=== PATIENT | male | born 1945 | race Caucasian/White ===

== ENCOUNTER → 2016-11-15 | Outpatient (CLI) | payer OTHER ==
[~2016-11-15] MED LIST: ALBUAER2 INH; AMLO-110 PO; ASPEC81 PO; CLC100 PO; CLOP1TAB15 PO; ISOS60TA25 PO; LISI-729 PO; METO-551 PO; METO25TA56 PO; NTRGSL/4 UT; PRAV40TA PO; ZNTT/150 PO
--- NOTE | 2016-11-15 08:34 | DIAGNOSTIC IMAGING REPORT ---
NECK ANGIO WITH CONTRAST CLINICAL HISTORY: 71 years-old Male presenting with lesion in the proximal mid left ICA. TECHNIQUE: Multidetector CT angiography of the neck was performed after the administration of intravenous contrast. 3-D volumetric and/or maximum intensity projection (MIP) images were subsequently reconstructed for review. IV contrast: 117 mL of Optiray 320. A dose lowering technique was used consistent with the principles of ALARA (as low as reasonably achievable). COMPARISON: None. CT DOSE (mGy.cm): The estimated cumulative dose is 572.22 mGy.cm. FINDINGS: Drafter Assistant topogram: Right craniotomy defect, median sternotomy wires, mediastinal surgical clips noted. Atherosclerosis of the aortic arch. Common origin of the innominate and left common carotid arteries. Mild atherosclerosis of the common carotid arteries, greater on the left. Atherosclerosis of the carotid bulbs is also greater on the left with calcified and noncalcified atherosclerotic plaque. Severe stenosis of the proximal left internal carotid artery results from noncalcified atherosclerotic plaque with a minimal diameter of 1 mm in comparison to a normal distal diameter of 5 mm (at least 80% stenosis). Distal to this the left internal carotid artery is widely patent without significant plaque burden. Mild calcified atherosclerotic plaque noted in the petrous left ICA. The right internal carotid artery is also narrowed in the proximal segment to a lesser degree with a minimal diameter of 2-2.5 mm in comparison to a normal distal diameter of 4 mm (approximately 50% stenosis). Codominant vertebral arteries. Atherosclerotic plaque results in less than 50% narrowing of the origin of the right vertebral artery through the left vertebral artery origin is widely patent. Remainder of the courses of the bilateral vertebral arteries are also widely patent. Visualized soft tissues of the neck within normal limits. Mild multilevel degenerative changes of the cervical spine. Mild emphysematous changes noted at the apices. The previously noted focal groundglass opacity at the left apex is not included within the [id number]. IMPRESSION: 1. At least 80% stenosis focally in the proximal left internal carotid artery secondary to noncalcified atherosclerotic plaque. 2. Approximately 50% stenosis in the proximal right internal carotid artery. 3. Less than 50% stenosis of the origin of the right vertebral artery. Electronically signed by: Esa Jain M.D. 11/15/2016 8:33 AM Dictated Date/Time: 11/15/2016 8:21 AM
== END ==
LOC: C.CTS 07:44
PROVIDERS: ATTEND Family Medicine
DX: R93.0 Abnormal findings on diagnostic imaging of skull and head, not elsewhere classified (principal); I25.10 Atherosclerotic heart disease of native coronary artery without angina pectoris; I10 Essential (primary) hypertension; K21.9 Gastro-esophageal reflux disease without esophagitis; I65.23 Occlusion and stenosis of bilateral carotid arteries; I74.8 Embolism and thrombosis of other arteries

== ENCOUNTER → 2017-04-21 | Outpatient (CLI) | payer OTHER ==
[~2017-04-21] MED LIST changes: +REGADENOSON 0.4 MG/5 ML SYR ONE
--- NOTE | 2017-04-24 12:50 | MYOCARDIAL PERFUSION SCAN ---
ORDERING PHYSICIAN: Tremaine Diaz MD PRIMARY CARE DOCTOR: Dr. Kendell Wilkerson INDICATION: Preoperative evaluation. DESCRIPTION OF PROCEDURE: The patient underwent standard Lexiscan stress ECG with results under a separate cover. There were no diagnostic ST changes with Lexiscan infusion. TECHNIQUE: For the stress portion of the study 10.8 mCi of technetium-99m Cardiolite IV was injected at 9:30 a.m. on 04/21/2017. Thirty minutes following the injection, imaging of the heart was performed in multiple projections. For the rest portion of the study, 32.9 mCi of technetium-99m Cardiolite was injected IV at 11:20 a.m. One hour following the injection, imaging of the heart was performed in the same projections. RAW DATA: There is mild motion artifact on the rest and stress images. There is a moderate in size, [id number] intensity distal anterior and apical defect, which is predominantly fixed consistent with prior myocardial infarction and scar. There is a moderate in size, moderate intensity septal and anterior septal defect, which is predominantly fixed, consistent with prior myocardial infarction and scar. There is minimal rossana-infarct ischemia. Quantitative analysis was performed and confirms these findings with a sum stress score of 10 and a sum difference score of 2, suggesting minimal rossana-infarct ischemia. Gated SPECT was performed. The left ventricle was mildly dilated with an end-diastolic volume of 141 mL. Calculated ejection fraction is mildly reduced with an EF in the range of 51%. There is septal fixation. The anterior septum, septum, distal anterior wall and apex are severely hypokinetic to akinetic. There is no obvious transient ischemic dilatation. IMPRESSION: 1. Prior myocardial infarction involving the septum, anterior septum, distal anterior wall and apex. 2. Minimal rossana-infarct ischemia. 3. Mildly dilated left ventricle with a calculated ejection fraction of 51% and wall motion abnormalities involving the septum, anterior septum, distal anterior wall and apex.
== END | disposition home or self-care (01) ==
LOC: C.NUCL 09:08
PROVIDERS: ATTEND Internal Medicine
DX: I25.10 Atherosclerotic heart disease of native coronary artery without angina pectoris (principal); I10 Essential (primary) hypertension; E78.5 Hyperlipidemia, unspecified; R93.0 Abnormal findings on diagnostic imaging of skull and head, not elsewhere classified; I73.9 Peripheral vascular disease, unspecified

== ENCOUNTER 2017-06-20 08:44 | Inpatient (IN) | payer OTHER ==
[2017-06-02 08:29] VITALS: BMI 26.0
--- NOTE | 2017-06-19 15:48 | History and Physical ---
History & Physical Date of Service Jun 19, 2017. History & Physical CC: Left internal carotid artery stenosis HPI: Mr. Walter was undergoing a routine physical exam and a left carotid bruit was noted last fall. Ultrasound was performed which demonstrated elevated velocities in his left internal carotid artery with a peak systolic velocity measuring over 300 and a diastolic velocity of 90. This indicates 90% stenosis of the left internal carotid artery and approximately 60% stenosis of his right internal carotid artery. The patient denies any complaints at this time aside from some occasional headaches. He denies any vision changes, difficulty speaking or swallowing; difficulty moving his arms or legs; weakness, numbness, or tingling of any extremities; facial droop, fevers, chills, nausea, vomiting, chest pain, shortness of breath, abdominal pain, claudication, rest pain, nonhealing wounds or ulcers or other complaints. He was somewhat hesitant to undergo the procedure due to the risks involved. However, he is now willing to have the procedure performed, as he also does not wish to have a stroke. He did undergo an ultrasound evaluation in our office today to verify patency of his left carotid, which once again demonstrates the 80-99% stenosis with a peak systolic velocity of 491 and a diastolic velocity of 181 and an ICA/CCA ratio of 6. ALLERGIES: INCLUDE IODINE TO WHICH HE FORMS BLISTERS AND RASH. LATEX, OCEAN KIDS NASAL SPRAY, PENICILLIN TO WHICH HE FORMS A RASH WELL AND SHELLFISH TO WHICH HE FORMS A RASH. MEDICATIONS: His home medications are reconciled in the chart and include the following; amlodipine, aspirin, clopidogrel, Colace, isosorbide mononitrate, lisinopril, loratadine, magnesium oxide, metoprolol tartrate, pravastatin, ranitidine, and Ventolin inhaler. PAST MEDICAL HISTORY: Positive for coronary artery disease, hyperlipidemia, hypertension, gastroesophageal reflux disease, chronic obstructive pulmonary disease, constipation. PAST SURGICAL HISTORY: Positive for multiple cardiac catheterizations with a total of 10 coronary stents placed over the years, most recent catheterization was in 2013. Coronary artery bypass graft x4 in 1995, arthroscopic knee procedure and a surgical procedure on a skull fracture. He also had a tonsillectomy. FAMILY HISTORY: Positive for heart disease, carotid disease, and circulation problems. SOCIAL HISTORY: Positive for tobacco use. The patient smokes half a pack of cigarettes daily. He denies any alcohol or drug use. REVIEW OF SYSTEMS: Negative for fatigue, fevers, sweats, weight loss, exercise intolerance, abnormal moles or rashes, vision changes or photophobia, ear pain, sinus problems, or sore throat. No cough, shortness of breath, hemoptysis, wheezing, chest pain, palpitations, edema, syncope, abdominal pain, nausea, vomiting, diarrhea, constipation, dysuria, hematuria, muscle weakness, headaches , dizziness, numbness, or seizures. PHYSICAL EXAMINATION: His vital signs today were as follows; blood pressure 126 /74 in the right arm, 124/72 in the left, heart rate of 55, oxygen 96% on room air. The patient is 182.88 cm tall and weighs 91.2 kg. Constitutional, in general the patient is a mildly chronically ill-appearing elderly male in no acute distress. He ambulates without assistance and is active, alert, and oriented x4 with normal recent and remote memory. Head is normocephalic and atraumatic. Eyes are EOMI. ENMT exam does demonstrate some light hearing loss , particularly of his left ear. He hears better if you speak to his right ear. His neck is supple and nontender with a midline trachea without masses or crepitus. Lungs demonstrate no dyspnea. They are decreased throughout with a faint expiratory wheeze. Cardiovascular exam demonstrates a regular rate and rhythm with a faint 2/6 systolic ejection murmur. His peripheral pulses are full and equal in all extremities. No cellulitis noted specifically. There are normal in his carotid, brachial, radial and femoral pulses. Lower extremity DP pulses are +1. PTs are nonpalpable. He does have brisk capillary refill. No sign of distal ischemia. Hair growth remains present on his feet and toes. The patient does demonstrate a left carotid bruit. No abdominal femoral bruits are noted. Abdomen is soft and nontender with normoactive bowel sounds in all 4 quadrants. No guarding or rebound. There is no pulsatile mass appreciable. Musculoskeletal exam demonstrates normal tone and strength for age. Bilateral upper extremities demonstrate no cyanosis, edema, clubbing, varicosities, or ulcers. Bilateral lower extremities demonstrate no cyanosis, edema, clubbing, varicosities, or ulcers. Neurologically, the patient has grossly intact cranial nerves and grossly intact sensation without any focal deficits. ASSESSMENT AND PLAN Left internal carotid artery stenosis Plan: Patient is admitted for a left carotid endarterectomy. I have discussed the risks options and benefits of the procedure with the patient. The patient understands the risks options and benefits and agrees to the procedure.
[~2017-06-20] VITALS: Ht 182.9 cm; Wt 86.5 kg
[2017-06-20] VITALS (18 sets, daily range): BP systolic 114–162; BP diastolic 46–73; PULSE 49–64; TEMP 36.5–36.7; O2SAT 92–99; Ht 182.9 cm; Wt 86.5 kg
[~2017-06-20 08:44] MED LIST changes: -ALBUAER2 INH; -ASPEC81 PO; +ASPI81TA28 PO; +ATOR-24 PO; -CLC100 PO; +CLINDAMYCIN 600 MG/54 ML D5W 50 ML IV SCH; -CLOP1TAB15 PO; +DOCU100C31 PO; +LACTATED RINGER'S 1000ML 1,000 ML IV SCH; +LEVA45AE INH; +LISI-461 PO; -LISI-729 PO; +MAGN400T6 PO; +PLV75 PO; -PRAV40TA PO; +RANI150T85 PO; -REGADENOSON 0.4 MG/5 ML SYR ONE; -ZNTT/150 PO
--- NOTE | 2017-06-20 09:27 | History & Physical Bridge Note ---
H&P Re-Evaluation Bridge Note: I have examined the patient, reviewed the History & Physical and in the interval since the performance of the History & Physical I have noted the following changes of clinical significance: No changes noted
[2017-06-20 09:54] LABS: CALCIUM 8.8 mg/dl (8.5-10.1); CREATININE 1.18 mg/dl (0.60-1.40); POTASSIUM 4.2 mmol/L (3.5-5.1)
[2017-06-20] MEDS ORDERED: GELATIN SPONGE SZ 100 ONE (10:05)
[2017-06-20] MEDS ORDERED: HEPARIN SOD (PORCINE) 1000 UNIT/ML 10 ML VIAL ONE ×2 (10:05→12:59)
[2017-06-20] MEDS ORDERED: LIDOCAINE HCL 1% 20 ML VIAL ONE (10:05)
[2017-06-20] MEDS ORDERED: BUPIVACAINE/EPINEPHRINE 0.5% MPF 1:200,000 30 ML VIAL ONE (10:05)
[2017-06-20] MEDS ORDERED: THROMBIN FOR SOLN 20000 UNIT KIT ONE (10:05)
[2017-06-20] MEDS ORDERED: FENTANYL CITRATE INJ 50 MCG/1 ML 2 ML VIAL ONE ×2 (10:31→14:44)
[2017-06-20] MEDS ORDERED: LIDOCAINE HCL 2% JELLY 30 ML TUBE EXT ONE (10:34)
[2017-06-20] MEDS ORDERED: BACITRACIN 50000 UNIT VIAL ONE (11:22)
[2017-06-20] MEDS ORDERED: HYDROmorphone INJ 2 MG/ML SYR/VIAL ONE (12:07)
[2017-06-20] MEDS ORDERED: PHENYLEPHRINE HCL INJ 10 MG/ML VIAL ONE (12:15)
[2017-06-20] MEDS ORDERED: LIDOCAINE HCL 2% 2 ML VIAL (20MG/ML) ONE (12:15)
[2017-06-20] MEDS ORDERED: PROPOFOL IV EMULSION 10 MG/ML 20 ML VIAL IV ONE (12:15)
[2017-06-20] MEDS ORDERED: ROCURONIUM BROMIDE 10 MG/ML 5 ML VIAL IV ONE ×2 (12:15→13:00)
[2017-06-20] MEDS ORDERED: DEXAMETHASONE SOD INJ 4 MG/ML VIAL ONE (12:15)
[2017-06-20] MEDS ORDERED: EpHEDrine SULFATE 50MG/5ML SYR ONE (12:15)
[2017-06-20] MEDS ORDERED: ONDANSETRON INJ 2 MG/ML 2 ML VIAL ONE (12:15)
--- NOTE | 2017-06-20 13:57 | [facility] Post Operative Brief Note ---
Immediate Operative Summary Operative Date Jun 20, 2017. Pre-Operative Diagnosis Left Internal Carotid Artery Stenosis Post-Operative Diagnosis Left internal carotid artery stenosis Procedure(s) Performed Left carotid endarterectomy with patch Surgeon Dr. Tremaine Diaz Pilot Boat Deckhand Surgeon(s) Sindi Lagos, Fellow; Ana Shell PA-C Estimated Blood Loss 150cc Findings Consistent with Post-Op Diagnosis Specimens plaque and lymph node Drains None Anesthesia Type General Complication(s) none Disposition Accompanied Pt To Recover: no Disposition: Recovery Room / PACU
[2017-06-20] MEDS ORDERED: NEOSTIGMINE METHYLSULFATE 5 MG/5 ML SYR ONE (14:05)
[2017-06-20] MEDS ORDERED: GLYCOPYRROLATE INJ 0.2 MG/ML VIAL ONE (14:05)
[2017-06-20] MEDS ORDERED: PHENYLEPHRINE HCL INJ 20 MG in DEXTROSE 5% 500ML 500 ML IV PRN (14:12)
[2017-06-20] MEDS ORDERED: NITROGLYCERIN/D5W 100 MCG/ML 250 ML IV PRN (14:12)
[2017-06-20] MEDS ORDERED: NITROGLYCERIN 0.4 MG SL PER TAB CHARGE UT PRN (14:15)
[2017-06-20] MEDS ORDERED: ACETAMINOPHEN 325 MG TAB PO PRN (14:15)
[2017-06-20] MEDS ORDERED: METOPROLOL TARTRATE 1 MG/ML VIAL IV PRN (14:15)
[2017-06-20] MEDS ORDERED: LEValbuterol HFA 15GM INHALER INH PRN (14:15)
--- NOTE | 2017-06-20 14:39 | OPERATIVE REPORT ---
DATE OF OPERATION: 06/20/2017 PREOPERATIVE DIAGNOSIS: Asymptomatic left carotid artery stenosis. POSTOPERATIVE DIAGNOSIS: Same. PROCEDURE: Left carotid endarterectomy. SURGEON: Dr. Tremaine Diaz. FOLDER AND NOTCHER: Cherri Lagos and Ana Sommers PA-C. ANESTHESIA: General anesthesia. ESTIMATED BLOOD LOSS: 150. FLUIDS: 1600 crystalloid. COMPLICATIONS: None apparent. INDICATIONS: The patient is a 71-year-old male with asymptomatic high grade left carotid stenosis. He was recommended carotid endarterectomy for stroke prevention. He was advised the risks and benefits of undergoing the procedure and agreed to undergo the procedure. DESCRIPTION OF PROCEDURE: The patient was brought into the operative suite. He was prepped and draped in usual fashion. Timeout occurred. An incision was made anterior to the sternocleidomastoid muscle. The platysma was dissected. The sternocleidomastoid was moved laterally. The internal jugular was identified. A large branch was thought to be the facial vein was identified and ligated. Prior to ligation, it was palpated to make sure there is no low lying hypoglossal. The internal jugular was then moved laterally with the sternocleidomastoid. The common carotid artery was identified and dissected out. During the dissection of the internal carotid, the hypoglossal was identified and avoided. The dissection was then locked distally. Our attention was turned distally. The external and internal carotid were identified and dissected out. In order to dissect out the internal carotid, there was a large local lymph node that was resected and sent for pathology. Once it appeared we had enough link for an endarterectomy and clamping, the patient was instilled with 7000 units of heparin. Once enough length was obtained, the patient was heparinized with 7000 units of heparin. Clamps were applied to the internal, the external and the common carotid. An arteriotomy was made. This was extended with [place] scissors. An external shunt was then placed proximally with good backbleeding and then inserted distally. Douglas clamps were used to hold the shunt in place. This was continuously monitored with Doppler. The endarterectomy was undertaken. The plaque was lifted with the freer elevator. The plaque was then removed. The artery was inspected for any loose pieces of plaque. These were removed with a small ring forceps. The artery was flushed multiple times pulling for any loose flaps. At the proximal end, the proximal end point was tacked with one 6-0 Prolene. Once the artery was felt to be clean, it was felt to be free of any loose debris. The [place] PTFE patch was placed on the field. This was sewn onto the carotid artery. Prior to completion, the shunts were removed and the internal common and external arteries were flushed. The shunt was removed and clamps were replaced on arteries. The patch was completed. Prior the external was opened first. The common was allowed to flush into the external for peripheral heartbeat and then the internal was opened. The patch was expected for hemostasis. Once this was obtained, the incision was closed with 2-0 and 3-0 Vicryls. The patient tolerated the procedure well, woke up and moved all extremities and was transferred to the PACU in stable condition. Dr. Tremaine Diaz was present for the entire this case. I attest to the content of the Intraoperative Record and any orders documented therein. Any exception s are noted below.
[2017-06-20] MEDS ORDERED: EpHEDrine SULFATE INJ 50 MG/ML AMP IV PRN (15:15)
[2017-06-20] MEDS ORDERED: ATROPINE SULFATE 0.1 MG/ML 5ML SYR IV PRN (15:15)
[2017-06-20] MEDS ORDERED: ONDANSETRON INJ 2 MG/ML 2 ML VIAL IV PRN (15:15)
[2017-06-20] MEDS ORDERED: FENTANYL CITRATE INJ 50 MCG/1 ML 2 ML VIAL IV PRN (15:15)
--- NOTE | 2017-06-20 15:15 | Anesthesiology Progress Note ---
Anesthesia Post Op Note Date & Time Jun 20, 2017 at 15:15 Vital Signs Pain Intensity: 4 Vital Signs Past 12 Hours Date Time Temp Pulse Resp B/P (MAP) Pulse Ox O2 Delivery O2 Flow Rate FiO2 06/20/17 15:00 59 12 115/48 93 Nasal Cannula 2 113/33 (54) 06/20/17 14:50 67 15 111/84 97 Oxymask 10 96/20 (46) 06/20/17 14:40 69 12 111/50 97 Oxymask 10 119/34 (56) 06/20/17 14:33 36.1 72 16 148/50 98 Oxymask 10 06/20/17 09:57 36.7 49 20 143/73 Room Air 95 151/70 Notes Mental Status: alert / awake / arousable, participated in evaluation Pt Amnestic to Procedure: Yes Nausea / Vomiting: adequately controlled Pain: adequately controlled Airway Patency, RR, SpO2: stable & adequate BP & HR: stable & adequate Hydration State: stable & adequate Anesthetic Complications: no major complications apparent The patient is doing well. He is talking and moving all extremities. He will be going to the ICU for continued postop care.
[2017-06-20] MEDS: D5W AND 1/2NSS 1,000 ML IV SCH (16:30)
[2017-06-20] MEDS: CLINDAMYCIN IV 600 MG in DEXTROSE 5% 50ML 50 ML IV SCH (17:25)
[2017-06-20] MEDS: HYDROCODONE/ACETAMIN 5/325MG TAB PO PRN ×2 (17:26→21:25)
--- NOTE | 2017-06-20 18:38 | Critical Care Consultation ---
Critical Care Consultation Date of Consultation: Jun 20, 2017. Attending Physician: Tremaine Diaz M.D. Reason for Consultation: Postop care in ICU. History of Present Illness Dear Dr. Diaz: Thank you for your kind referral of Mr. Walter to critical care service. This is 71-year-old gentleman with a history of coronary artery disease, status post CABG, history of peripheral arterial disease, active smoker, history of COPD, GERD, hypertension hyperlipidemia, incarcerated, presented to the hospital for elective carotid endarterectomy on the left side. The patient had the procedure done today uneventful, postop the patient presented to the ICU for monitoring after carotid endarterectomy. When I interviewed the patient, he denies any pain, no sore throat, was able to tolerate taking solid food orally, denies any difficulty breathing and no cough no sputum production. The patient is active smoker with the cigarette smoke yesterday. He did not have any nausea no abdominal pain. No dizziness or lightheadedness. He denies any increased swelling in his lower extremities. Otherwise he was asymptomatic. Family History FH: lung cancer Hypertension Social History Smoking Status: Current Every Day Smoker Drug Use: none Marital Status: single Housing Status: other Occupation Status: other Allergies Coded Allergies: Iodine (Verified Allergy, Unknown, UNK, 06/20/17) Latex (Verified Allergy, Unknown, Unknown rxn, 06/20/17) Shellfish (Verified Allergy, Unknown, UNK, 06/20/17) Penicillins (Verified Adverse Reaction, Mild, Nausea/Vomiting, 06/20/17) Home Medications Scheduled Amlodipine (Norvasc), 5 MG PO QAM Aspirin (Aspirin Ec), 81 MG PO QAM Atorvastatin (Lipitor), 40 MG PO QAM Clopidogrel Bisulfate (Clopidogrel), 1 TAB PO QAM Docusate Sodium (Docusate Sodium), 1 CAP PO BID Isosorbide Mononitrate Ext Rel (Imdur Ext Rel), 60 MG PO QAM Lisinopril (Zestril), 10 MG PO QAM Magnesium Oxide (Mag-Ox), 400 MG PO BID Metoprolol Tartrate (Lopressor), 50 MG PO BID Metoprolol Tartrate (Lopressor) (Lopressor), 25 MG PO BID Nitroglycerin (Nitrostat), 0.4 MG UT DIRECTED Ranitidine (Zantac), 150 MG PO BID Scheduled PRN Levalbuterol Tartrate (Levalbuterol Tartrate Hfa), 2 PUFF INH QID PRN for SOB/ Wheezing Current Inpatient Medications Current Inpatient Medications Medications (Trade) Dose Ordered Sig/Wild Route Start Time Stop Time Status Last Admin Dose Admin Lactated Ringer's 1,000 ml @ 80 mls/hr [id number] IV 06/20/17 06:00 06/20/17 18:29 06/20/17 10:24 80 MLS/HR Acetaminophen (Tylenol Tab) 650 mg Q4H PRN PO 06/20/17 14:15 07/20/17 14:14 Morphine Sulfate (MoRPHine SULFATE INJ) 4 mg Q4H PRN IV 06/20/17 14:15 07/04/17 14:14 Ondansetron HCl (Zofran Inj) 4 mg Q6H PRN IV 06/20/17 14:15 07/20/17 14:14 Clindamycin Phosphate 600 mg/ Dextrose 54 ml @ 100 mls/hr Q8H IV 06/20/17 18:00 06/21/17 02:33 06/20/17 17:25 100 MLS/HR Metoprolol Tartrate (Lopressor Iv) 5 mg Q10M PRN IV 06/20/17 14:15 07/20/17 14:14 Nitroglycerin/ Dextrose 250 ml @ 0 mls/hr Q0M PRN IV 06/20/17 14:12 07/20/17 14:11 Dextrose/Sodium Chloride 1,000 ml @ 125 mls/hr Q8H IV 06/20/17 16:30 07/20/17 16:29 Acetaminophen/ Hydrocodone Bitart ([place] 5/325 Tab) FOR MODERATE PAIN ... Q4H PRN PO 06/20/17 14:15 07/04/17 14:14 06/20/17 17:26 2 TAB Phenylephrine HCl 20 mg/Dextrose 502 ml @ 0 mls/hr Q0M PRN IV 06/20/17 14:12 07/20/17 14:11 Enoxaparin Sodium (Lovenox Inj) 30 mg Q12 SQ 06/20/17 21:00 07/20/17 20:59 Amlodipine Besylate (Norvasc Tab) 5 mg QAM PO 06/21/17 09:00 07/21/17 08:59 Aspirin (Ecotrin Tab) 81 mg QAM PO 06/21/17 09:00 07/21/17 08:59 Atorvastatin Calcium (Lipitor Tab) 40 mg QAM PO 06/21/17 09:00 07/21/17 08:59 Clopidogrel Bisulfate (plAVix TAB) 75 mg QAM PO 06/21/17 09:00 07/21/17 08:59 Docusate Sodium (coLACE CAP) 100 mg BID PO 06/20/17 21:00 07/20/17 20:59 Isosorbide Mononitrate (Imdur Ext Rel Tab) 60 mg QAM PO 06/21/17 09:00 07/21/17 08:59 Levalbuterol (Xopenex Hfa Inhaler) 2 puffs QID PRN INH 06/20/17 14:15 07/20/17 14:14 Lisinopril (Zestril Tab) 10 mg QAM PO 06/21/17 09:00 07/21/17 08:59 Magnesium Oxide (Mag-Ox Tab) 400 mg BID PO 06/20/17 21:00 07/20/17 20:59 Metoprolol Tartrate (Lopressor Tab) 50 mg BID PO 06/20/17 21:00 07/20/17 20:59 Metoprolol Tartrate (Lopressor Tab) 25 mg BID PO 06/20/17 21:00 07/20/17 20:59 Nitroglycerin (Nitrostat Tab) 0.4 mg UD PRN UT 06/20/17 14:15 07/20/17 14:14 Ranitidine HCl (zANTac TAB) 150 mg BID PO 06/20/17 21:00 07/20/17 20:59 Fentanyl Citrate (Fentanyl Inj) 25 mcg Q5M PRN IV 06/20/17 15:15 06/20/17 20:00 Ondansetron HCl (Zofran Inj) 4 mg ONE PRN IV 06/20/17 15:15 06/20/17 20:20 Ephedrine Sulfate (EpHEDrine SULFATE INJ) 5 mg Q5M PRN IV 06/20/17 15:15 06/20/17 20:20 Atropine Sulfate (Atropine Sulfate 0.1mg/ml Inj) 0.5 mg Q1M PRN IV 06/20/17 15:15 06/21/17 20:00 Review of Systems Constitutional: + fever, + chills, + fatigue ENT: No hearing loss, No unusual epistaxis, No nasal symptoms, No sore throat, No tinnitus, No dental problems, No trouble swallowing, No problem reported Respiratory: No cough, No sputum, No wheezing, No shortness of breath, No dyspnea on exertion, No dyspnea at rest, No hemoptysis, No problem reported Cardiovascular: No chest pain, No orthopnea, No PND, No edema, No claudication , No palpitations, No problem reported Abdomen: No pain, No nausea, No vomiting, No diarrhea, No constipation, No GI bleeding, No problem reported Neurologic: No memory loss, No paralysis, No weakness, No numbness/tingling, No vertigo, No balance problems, No problem reported Endocrine: No fatigue, No excessive thirst, No excessive urination, No problem reported Physical Exam Date Time Temp Pulse Resp B/P (MAP) Pulse Ox O2 Delivery O2 Flow Rate FiO2 06/20/17 18:00 58 15 127/46 (73) 93 Room Air 06/20/17 17:45 53 12 (69) 93 127/49 06/20/17 17:45 53 12 127/49 (75) 93 Room Air 06/20/17 17:30 52 14 131/49 (76) 96 Room Air 06/20/17 17:15 56 13 115/50 (71) 96 Room Air 06/20/17 17:15 36.5 56 13 115/50 (71) 96 Room Air 06/20/17 17:15 56 13 (68) 96 115/50 06/20/17 17:00 62 14 114/49 (70) 98 Room Air 06/20/17 16:45 58 10 (66) 92 119/47 06/20/17 16:45 58 10 119/47 (71) 92 Room Air 06/20/17 16:30 36.5 64 15 119/47 (71) 94 Room Air 06/20/17 16:00 64 13 125/45 (67) 95 Nasal Cannula 2 112/34 (55) 06/20/17 15:50 65 12 115/47 (75) 95 Nasal Cannula 2 114/36 (57) 06/20/17 15:45 59 12 120/47 (72) 95 Nasal Cannula 2 109/30 (51) 06/20/17 15:40 36.5 58 12 124/48 (69) 94 Nasal Cannula 2 109/32 (53) 06/20/17 15:30 58 17 114/49 (62) 94 Nasal Cannula 2 110/34 (55) 06/20/17 15:20 62 12 115/45 (74) 95 Nasal Cannula 2 103/32 (51) 06/20/17 15:10 65 12 115/51 (63) 94 Nasal Cannula 2 104/34 (54) 06/20/17 15:00 59 12 115/48 (81) 93 Nasal Cannula 2 113/33 (54) 06/20/17 14:50 67 15 111/84 (79) 97 Oxymask 10 96/20 (46) 06/20/17 14:40 69 12 111/50 (67) 97 Oxymask 10 119/34 (56) 06/20/17 14:33 36.1 72 16 148/50 (77) 98 Oxymask 10 06/20/17 09:57 36.7 49 20 143/73 Room Air 95 151/70 General Appearance: well-appearing Neck: other (Postop left carotid surgery) Respiratory: breath sounds normal, clear to auscultation Cardiovasular: normal S1S2, no M/G/R, no murmur Abdomen: non tender, no masses Lower Extremities: no edema Neuro: alert, oriented x 3, normal motor exam, normal sensation Laboratory Results Last 24 Hours Test 06/20/17 09:22 06/20/17 15:34 Sodium Level 139 mmol/L Potassium Level 4.2 mmol/L Chloride Level 106 mmol/L Carbon Dioxide Level 27 mmol/L Anion Gap 6.0 mmol/L Blood Urea Nitrogen 18 mg/dl Creatinine 1.18 mg/dl Est Creatinine Clear Calc Drug Dose 63.9 ml/min Estimated GFR () 72.0 Estimated GFR (Non- 62.2 BUN/Creatinine Ratio 15.2 Random Glucose 99 mg/dl Calcium Level 8.8 mg/dl Bedside Glucose 140 mg/dl Diagnostic Results Chemistry was reviewed and appeared normal. Assessment & Plan 1. Postop day 0 carotid endarterectomy left-sided. Asymptomatic uneventful does not have any swelling or induration in the area, no neurologic deficits, doing fantastic. 2. COPD, gold level 2, on bronchodilators. Active smoker. Not willing to quit. 3. Peripheral arterial disease. 4. Coronary artery disease, stable on current medications including antiplatelets. 5. No dysphagia tolerating oral intake. 6. Blood pressure has been well controlled. Bradycardia was noted due to beta- blockers. O2 saturation is 93% which is acceptable on room air. 7. Smoking cessation counseling. 8. Disposition plan per Dr. Diaz. Thank you for the kind referral, will follow. Discussed with the staff on rounds. Critical care time 35 minutes.
[2017-06-20] MEDS: METOPROLOL TARTRATE 25 MG TAB PO SCH (21:00)
[2017-06-20] MEDS: METOPROLOL TARTRATE 50 MG TAB PO SCH (21:00)
[2017-06-20] MEDS: RANITIDINE HCL 150 MG TAB PO SCH (21:20)
[2017-06-20] MEDS: MAGNESIUM OXIDE 400 MG TAB PO SCH (21:20)
[2017-06-20] MEDS: DOCUSATE SODIUM 100 MG CAP PO SCH (21:20)
[2017-06-20] MEDS: ENOXAPARIN 30 MG/0.3 ML SYR SQ SCH (21:22)
[2017-06-20] MEDS: MoRPHine SULFATE 4 MG/ML 1 ML CARP\\VIAL IV PRN (22:43)
[2017-06-20] MEDS ORDERED: PANTOprazole INJ 40 MG in SYRINGE 0 ML IV ONE (23:00)
[2017-06-20] MEDS: ONDANSETRON INJ 2 MG/ML 2 ML VIAL IV PRN (23:01)
--- NOTE | 2017-06-20 23:04 | Critical Care Progress Note ---
Critical Care Progress Note Date of Service Jun 20, 2017. Critical Care Progress Note 2245: c/o pain to the LEFT-sided face and neck as well as indigestion. I independently evaluate the patient. He is now slightly hypertensive. The patient does have a significant cardiac past medical history. Emergent EKG was obtained and reviewed from priors. Patient was found to have a normal sinus rhythm at a rate of 63 bpm with no acute ST or T-wave abnormalities. QTc was 452 ms. Patient was provided a dose of morphine intravenously as well as IV Protonix. Nursing staff did speak to surgeon who is comfortable with this plan. At this point, the patient's blood pressure did improve as his pain went down. I did not progress to providing nitrates at this point, however this is certainly not at the table. We will continue to monitor for any changes. Agree with the above, please see my independent note.
[2017-06-20 23:19] LABS: BASO % 0.1 %; BASO ABS # 0.01 K/uL (0-0.2); HEMATOCRIT 38.4 % (42-52); HEMOGLOBIN 13.4 g/dL (14.0-18.0); IG# 0.03 K/uL (0.00-0.02); LYMPH % 9.2 %; LYMPH ABS # 1.18 K/uL (1.2-3.4); MEAN CELL VOLUME 87.7 fL (80-100); MEAN CORPUSCULAR HEMOGLOBIN 30.6 pg (25-34); MEAN CORPUSCULAR HGB CONC 34.9 g/dl (32-36); MEAN PLATELET VOLUME 10.9 fL (7.4-10.4); MONO % 6.3 %; MONO ABS # 0.81 K/uL (0.11-0.59); NEUT % 84.2 %; NEUT ABS # 10.76 K/uL (1.4-6.5); PLATELET COUNT 194 K/uL (130-400); RED CELL DISTRIBUTION WIDTH CV 13.6 % (11.5-14.5); RED CELL DISTRIBUTION WIDTH SD 43.7 fL (36.4-46.3); WHITE BLOOD COUNT 12.79 K/uL (4.8-10.8)
[2017-06-20 23:37] LABS: ALBUMIN 2.9 gm/dl (3.4-5.0); CALCIUM 7.9 mg/dl (8.5-10.1); CREATININE 1.02 mg/dl (0.60-1.40); POTASSIUM 4.1 mmol/L (3.5-5.1)
[2017-06-20 23:40] LABS: CKMB 1.7 ng/ml (0.5-3.6); PHOSPHORUS 2.1 mg/dl (2.5-4.9); TOTAL PROTEIN 6.1 gm/dl (6.4-8.2)
[2017-06-21] VITALS (20 sets, daily range): BP systolic 113–152; BP diastolic 44–69; PULSE 54–71; TEMP 36.4–37; O2SAT 92–97
[2017-06-21] MEDS: CLINDAMYCIN IV 600 MG in DEXTROSE 5% 50ML 50 ML IV SCH (02:00)
[2017-06-21] MEDS: D5W AND 1/2NSS 1,000 ML IV SCH ×3 (02:40→20:21)
[2017-06-21] MEDS: ONDANSETRON INJ 2 MG/ML 2 ML VIAL IV PRN ×2 (05:48→23:37)
[2017-06-21 05:49] LABS: BASO % 0.1 %; BASO ABS # 0.01 K/uL (0-0.2); HEMATOCRIT 36.3 % (42-52); HEMOGLOBIN 12.6 g/dL (14.0-18.0); IG# 0.05 K/uL (0.00-0.02); LYMPH % 12.5 %; LYMPH ABS # 1.77 K/uL (1.2-3.4); MEAN CELL VOLUME 87.3 fL (80-100); MEAN CORPUSCULAR HEMOGLOBIN 30.3 pg (25-34); MEAN CORPUSCULAR HGB CONC 34.7 g/dl (32-36); MEAN PLATELET VOLUME 10.3 fL (7.4-10.4); MONO % 10.3 %; MONO ABS # 1.46 K/uL (0.11-0.59); NEUT % 76.7 %; NEUT ABS # 10.82 K/uL (1.4-6.5); PLATELET COUNT 181 K/uL (130-400); RED CELL DISTRIBUTION WIDTH CV 13.6 % (11.5-14.5); RED CELL DISTRIBUTION WIDTH SD 43.7 fL (36.4-46.3); WHITE BLOOD COUNT 14.11 K/uL (4.8-10.8)
[2017-06-21 06:21] LABS: CALCIUM 7.8 mg/dl (8.5-10.1); CREATININE 0.84 mg/dl (0.60-1.40); POTASSIUM 3.8 mmol/L (3.5-5.1)
[2017-06-21 06:26] LABS: CKMB 2.2 ng/ml (0.5-3.6); PHOSPHORUS 2.6 mg/dl (2.5-4.9)
[2017-06-21] MEDS: HYDROCODONE/ACETAMIN 5/325MG TAB PO PRN ×4 (08:05→17:25)
[2017-06-21] MEDS: DOCUSATE SODIUM 100 MG CAP PO SCH ×2 (08:06→21:22)
[2017-06-21] MEDS: CLOPIDOGREL BISULFATE 75 MG TAB PO SCH (08:06)
[2017-06-21] MEDS: ASPIRIN 81 MG ECTAB PO SCH (08:06)
[2017-06-21] MEDS: ATORVASTATIN 40 MG TAB PO SCH (08:06)
[2017-06-21] MEDS: AMLODIPINE BESYLATE 5 MG TAB PO SCH (08:07)
[2017-06-21] MEDS: METOPROLOL TARTRATE 25 MG TAB PO SCH ×3 (08:08→21:22)
[2017-06-21] MEDS: METOPROLOL TARTRATE 50 MG TAB PO SCH ×3 (08:08→21:22)
[2017-06-21] MEDS: RANITIDINE HCL 150 MG TAB PO SCH ×2 (08:09→21:22)
[2017-06-21] MEDS: ISOSORBIDE MONONITRATE 60 MG TABCR PO SCH (08:09)
[2017-06-21] MEDS: LISINOPRIL 10 MG TAB PO SCH (08:09)
[2017-06-21] MEDS: ENOXAPARIN 30 MG/0.3 ML SYR SQ SCH ×2 (08:09→21:22)
[2017-06-21] MEDS: MAGNESIUM OXIDE 400 MG TAB PO SCH ×2 (08:09→21:22)
[2017-06-21] MEDS: MoRPHine SULFATE 4 MG/ML 1 ML CARP\\VIAL IV PRN (10:34)
--- NOTE | 2017-06-21 10:46 | Anesthesiology Progress Note ---
Anesthesia Post Op Note Date & Time Jun 21, 2017 at 10:45 Vital Signs Pain Intensity: 7.5 Vital Signs Past 12 Hours Date Time Temp Pulse Resp B/P (MAP) Pulse Ox O2 Delivery O2 Flow Rate FiO2 06/21/17 08:00 36.5 59 15 142/44 (76) 96 Room Air 134/59 (84) 06/21/17 08:00 Room Air 06/21/17 05:01 60 17 140/61 (87) 93 Room Air 06/21/17 05:00 61 15 152/54 (86) 95 Room Air 06/21/17 04:01 59 15 114/65 (81) 94 Room Air 06/21/17 04:00 36.6 59 16 143/51 (81) 94 Room Air 06/21/17 04:00 97 Room Air 06/21/17 03:01 58 16 124/54 (77) Room Air 06/21/17 03:00 57 17 146/52 (83) 94 Room Air 06/21/17 02:01 56 16 128/57 (80) Room Air 06/21/17 02:00 55 14 145/49 (81) 96 Room Air 06/21/17 01:01 55 16 131/59 (83) 93 Room Air 06/21/17 01:00 54 14 144/49 (80) 94 Room Air 06/21/17 00:01 57 16 118/51 (73) Room Air 06/21/17 00:00 36.4 56 16 134/46 (75) 93 Room Air 06/21/17 00:00 95 Room Air Notes Mental Status: alert / awake / arousable, participated in evaluation Pt Amnestic to Procedure: Yes Nausea / Vomiting: adequately controlled Pain: adequately controlled Airway Patency, RR, SpO2: stable & adequate BP & HR: stable & adequate Hydration State: stable & adequate Anesthetic Complications: no major complications apparent
--- NOTE | 2017-06-21 12:17 | Progress Note ---
Progress Note Date of Service: Jun 21, 2017. Subjective 71 yo m with multiple medical problems, POD #1 after L CEA, seenin f/u today. Pt admits severe pain in L neck surgical site. Also very sore throat, causing pain with swallowing. Denies other complaints. Objective Vital Signs Vital Signs Past 12 Hours Date Time Temp Pulse Resp B/P (MAP) Pulse Ox O2 Delivery O2 Flow Rate FiO2 06/21/17 10:00 71 17 142/49 (80) 96 Room Air 06/21/17 08:00 36.5 59 15 142/44 (76) 96 Room Air 134/59 (84) 06/21/17 08:00 Room Air 06/21/17 05:01 60 17 140/61 (87) 93 Room Air 06/21/17 05:00 61 15 152/54 (86) 95 Room Air 06/21/17 04:01 59 15 114/65 (81) 94 Room Air 06/21/17 04:00 36.6 59 16 143/51 (81) 94 Room Air 06/21/17 04:00 97 Room Air 06/21/17 03:01 58 16 124/54 (77) Room Air 06/21/17 03:00 57 17 146/52 (83) 94 Room Air 06/21/17 02:01 56 16 128/57 (80) Room Air 06/21/17 02:00 55 14 145/49 (81) 96 Room Air 06/21/17 01:01 55 16 131/59 (83) 93 Room Air 06/21/17 01:00 54 14 144/49 (80) 94 Room Air Exam CONST: A&O x3, NAD, anxious d/t pain NECK: L neck incision C/D/I, mild edema, soft. No ecchymosis or erythema noted. trachea midline CHEST: RRR lungs decreased ABD: soft, nontender, + bs x 4 quad EXT: TATE. NEURO: no focal deficits Laboratory and Microbiology Results Past 24 Hours Test 06/20/17 15:34 06/20/17 21:17 06/20/17 22:55 06/21/17 05:39 Range/Units Bedside Glucose 140 180 70-99 mg/dl White Blood Count 12.79 14.11 4.8-10.8 K/uL Red Blood Count 4.38 4.16 4.7-6.1 M/uL Hemoglobin 13.4 12.6 14.0-18.0 g/dL Hematocrit 38.4 36.3 42-52 % Mean Corpuscular Volume 87.7 87.3 80-100 fL Mean Corpuscular Hemoglobin 30.6 30.3 25-34 pg Mean Corpuscular Hemoglobin Concent 34.9 34.7 32-36 g/dl Platelet Count 194 181 130-400 K/uL Mean Platelet Volume 10.9 10.3 7.4-10.4 fL Neutrophils (%) (Auto) 84.2 76.7 % Lymphocytes (%) (Auto) 9.2 12.5 % Monocytes (%) (Auto) 6.3 10.3 % Eosinophils (%) (Auto) 0.0 0.0 % Basophils (%) (Auto) 0.1 0.1 % Neutrophils # (Auto) 10.76 10.82 1.4-6.5 K/uL Lymphocytes # (Auto) 1.18 1.77 1.2-3.4 K/uL Monocytes # (Auto) 0.81 1.46 0.11-0.59 K/uL Eosinophils # (Auto) 0.00 0.00 0-0.5 K/uL Basophils # (Auto) 0.01 0.01 0-0.2 K/uL RDW Standard Deviation 43.7 43.7 36.4-46.3 fL RDW Coefficient of Variation 13.6 13.6 11.5-14.5 % Immature Granulocyte % (Auto) 0.2 0.4 % Immature Granulocyte # (Auto) 0.03 0.05 0.00-0.02 K/uL Sodium Level 135 134 136-145 mmol/L Potassium Level 4.1 3.8 3.5-5.1 mmol/L Chloride Level 105 105 98-107 mmol/L Carbon Dioxide Level 22 21 21-32 mmol/L Anion Gap 8.0 8.0 3-11 mmol/L Blood Urea Nitrogen 21 16 7-18 mg/dl Creatinine 1.02 0.84 0.60-1.40 mg/dl Est Creatinine Clear Calc Drug Dose 74.0 89.8 ml/min Estimated GFR () 85.9 102.8 Estimated GFR (Non- 74.1 88.7 BUN/Creatinine Ratio 20.9 19.5 10-20 Random Glucose 164 146 70-99 mg/dl Calcium Level 7.9 7.8 8.5-10.1 mg/dl Phosphorus Level 2.1 2.6 2.5-4.9 mg/dl Magnesium Level 2.0 2.2 1.8-2.4 mg/dl Total Bilirubin 0.5 0.2-1 mg/dl Direct Bilirubin 0.1 0-0.2 mg/dl Aspartate Amino Transf (AST/SGOT) 8 15-37 U/L Alanine Aminotransferase (ALT/SGPT) 18 12-78 U/L Alkaline Phosphatase 115 45-117 U/L Total Creatine Kinase 174 228 39-308 U/L Creatine Kinase MB 1.7 2.2 0.5-3.6 ng/ml Creatine Kinase MB Ratio 1.0 1.0 0-3.0 Troponin I 0.021 0.028 0-0.045 ng/ml Total Protein 6.1 6.4-8.2 gm/dl Albumin 2.9 3.4-5.0 gm/dl Prothrombin Time 10.9 9.0-12.0 SECONDS Prothromb Time International Ratio 1.0 0.9-1.1 Microbiology Results 06/20/17 MRSA DNA Surveillance Screen - Final, Complete Specimen Negative for MRSA by DNA Probe ASSESSMENT and PLAN: s/p L CEA LICAS Pt doing ok post op. Pt also seen by Dr Diaz. Recommend transfer to floor and staying one more night for better pain control prior to discharge.
[2017-06-21] MEDS ORDERED: NURSING VERBAL MED ORDER ONE ×2 (13:30→20:30)
--- NOTE | 2017-06-21 16:08 | Critical Care Progress Note ---
Critical Care Progress Note Date of Service Jun 21, 2017. Attending Dr. David Subjective The patient has been improving significantly, no evidence of focality or weakness, the patient chief complaint was pain in the left neck side, no dysphagia, no induration and no swelling. Responded to narcotics orally. Objective His physical exam on 06/21/2017 showed stable vital signs, wide pulse pressure, surgical incision after carotid endarterectomy appear clean without any swelling or erythema, no hematoma, no stridor, S1-S2 regular rate and rhythm, distant breath sounds bilaterally, abdomen is benign, no edema. Neurologically he is nonfocal. No cranial nerves deficit as well. His labs were reviewed as well with the staff on rounds. The patient did have an episode of pain at the left neck side and workup done by my colleague Justin Triplett. No evidence of neuro or cardiac event. Assessment & Plan 1. Peripheral arterial disease, carotid endarterectomy postop day 1. Doing well. Improving as expected. 2. COPD, not in exacerbation. 3. Coronary artery disease status post CABG. 4. History of diabetes, hypertension hyperlipidemia. Plan: 1. Pain control appeared to be adequate at this point. 2. Oral intake. 3. Glucose control. 4. Antiplatelet therapy. 5. Appreciate Dr. Mullen input. 6. Patient will be transferred to regular floor. 7. Case discussed with the staff on rounds. Critical care time spent with the patient was 35 minutes. Data Medications: Current Inpatient Medications Medications (Trade) Dose Ordered Sig/Wild Route Start Time Stop Time Status Last Admin Dose Admin Acetaminophen (Tylenol Tab) 650 mg Q4H PRN PO 06/20/17 14:15 07/20/17 14:14 Ondansetron HCl (Zofran Inj) 4 mg Q6H PRN IV 06/20/17 14:15 07/20/17 14:14 06/21/17 05:48 4 MG Metoprolol Tartrate (Lopressor Iv) 5 mg Q10M PRN IV 06/20/17 14:15 07/20/17 14:14 Dextrose/Sodium Chloride 1,000 ml @ 125 mls/hr Q8H IV 06/20/17 16:30 07/20/17 16:29 06/21/17 08:06 125 MLS/HR Acetaminophen/ Hydrocodone Bitart (Oneill 5/325 Tab) FOR MODERATE PAIN ... Q4H PRN PO 06/20/17 14:15 07/04/17 14:14 06/21/17 13:24 1 TAB Enoxaparin Sodium (Lovenox Inj) 30 mg Q12 SQ 06/20/17 21:00 07/20/17 20:59 06/21/17 08:09 30 MG Amlodipine Besylate (Norvasc Tab) 5 mg QAM PO 06/21/17 09:00 07/21/17 08:59 06/21/17 08:07 5 MG Aspirin (Ecotrin Tab) 81 mg QAM PO 06/21/17 09:00 07/21/17 08:59 06/21/17 08:06 81 MG Atorvastatin Calcium (Lipitor Tab) 40 mg QAM PO 06/21/17 09:00 07/21/17 08:59 06/21/17 08:06 40 MG Clopidogrel Bisulfate (plAVix TAB) 75 mg QAM PO 06/21/17 09:00 07/21/17 08:59 06/21/17 08:06 75 MG Docusate Sodium (coLACE CAP) 100 mg BID PO 06/20/17 21:00 07/20/17 20:59 06/21/17 08:06 100 MG Isosorbide Mononitrate (Imdur Ext Rel Tab) 60 mg QAM PO 06/21/17 09:00 07/21/17 08:59 06/21/17 08:09 60 MG Levalbuterol (Xopenex Hfa Inhaler) 2 puffs QID PRN INH 06/20/17 14:15 07/20/17 14:14 Lisinopril (Zestril Tab) 10 mg QAM PO 06/21/17 09:00 07/21/17 08:59 06/21/17 08:09 10 MG Magnesium Oxide (Mag-Ox Tab) 400 mg BID PO 06/20/17 21:00 07/20/17 20:59 06/21/17 08:09 400 MG Metoprolol Tartrate (Lopressor Tab) 50 mg BID PO 06/20/17 21:00 07/20/17 20:59 06/21/17 10:09 50 MG Metoprolol Tartrate (Lopressor Tab) 25 mg BID PO 06/20/17 21:00 4/19/18 20:59 06/21/17 10:08 25 MG Nitroglycerin (Nitrostat Tab) 0.4 mg UD PRN UT 06/20/17 14:15 07/20/17 14:14 Ranitidine HCl (zANTac TAB) 150 mg BID PO 06/20/17 21:00 07/20/17 20:59 06/21/17 08:09 150 MG I & O: 24-Hour Column 06/22/17 07:59 Output Total 500 ml Balance -500 ml Vital Signs: Date Time Temp Pulse Resp B/P (MAP) Pulse Ox O2 Delivery O2 Flow Rate FiO2 06/21/17 14:32 37.0 67 18 152/69 (96) 94 Room Air 06/21/17 13:29 36.5 62 20 93 06/21/17 12:00 36.5 62 20 144/62 (89) 93 Room Air 06/21/17 12:00 Room Air 06/21/17 10:00 71 17 142/49 (80) 96 Room Air 06/21/17 08:00 36.5 59 15 142/44 (76) 96 Room Air 134/59 (84) 06/21/17 08:00 Room Air 06/21/17 05:01 60 17 140/61 (87) 93 Room Air 06/21/17 05:00 61 15 152/54 (86) 95 Room Air 06/21/17 04:01 59 15 114/65 (81) 94 Room Air 06/21/17 04:00 36.6 59 16 143/51 (81) 94 Room Air 06/21/17 04:00 97 Room Air 06/21/17 03:01 58 16 124/54 (77) Room Air 06/21/17 03:00 57 17 146/52 (83) 94 Room Air 06/21/17 02:01 56 16 128/57 (80) Room Air 06/21/17 02:00 55 14 145/49 (81) 96 Room Air 06/21/17 01:01 55 16 131/59 (83) 93 Room Air 06/21/17 01:00 54 14 144/49 (80) 94 Room Air 06/21/17 00:01 57 16 118/51 (73) Room Air 06/21/17 00:00 36.4 56 16 134/46 (75) 93 Room Air 06/21/17 00:00 95 Room Air 06/20/17 22:45 63 19 162/56 (91) 99 06/20/17 22:30 63 18 156/52 (86) 97 06/20/17 22:15 59 16 151/53 (85) 98 06/20/17 22:15 59 16 151/53 (85) 98 06/20/17 22:01 58 14 127/57 (80) 95 Room Air 06/20/17 21:01 36.6 56 16 124/51 (63) 96 136/47 06/20/17 20:30 60 13 (77) 96 143/50 06/20/17 20:00 93 Room Air 06/20/17 20:00 55 13 (75) 96 133/48 06/20/17 19:15 56 12 (76) 97 134/54 06/20/17 19:00 55 19 (74) 94 135/51 06/20/17 18:00 58 15 127/46 (73) 93 Room Air 06/20/17 17:45 53 12 (69) 93 127/49 06/20/17 17:45 53 12 127/49 (75) 93 Room Air 06/20/17 17:30 52 14 131/49 (76) 96 Room Air 06/20/17 17:15 56 13 115/50 (71) 96 Room Air 06/20/17 17:15 36.5 56 13 115/50 (71) 96 Room Air 06/20/17 17:15 56 13 (68) 96 115/50 06/20/17 17:00 62 14 114/49 (70) 98 Room Air 06/20/17 16:45 58 10 (66) 92 119/47 06/20/17 16:45 58 10 119/47 (71) 92 Room Air 06/20/17 16:30 36.5 64 15 119/47 (71) 94 Room Air 06/20/17 16:10 93 Room Air Laboratory Results: Last 24 Hours Test 06/20/17 21:17 06/20/17 22:55 06/21/17 05:39 06/21/17 11:19 Bedside Glucose 180 mg/dl 111 mg/dl White Blood Count 12.79 K/uL 14.11 K/uL Red Blood Count 4.38 M/uL 4.16 M/uL Hemoglobin 13.4 g/dL 12.6 g/dL Hematocrit 38.4 % 36.3 % Mean Corpuscular Volume 87.7 fL 87.3 fL Mean Corpuscular Hemoglobin 30.6 pg 30.3 pg Mean Corpuscular Hemoglobin Concent 34.9 g/dl 34.7 g/dl Platelet Count 194 K/uL 181 K/uL Mean Platelet Volume 10.9 fL 10.3 fL Neutrophils (%) (Auto) 84.2 % 76.7 % Lymphocytes (%) (Auto) 9.2 % 12.5 % Monocytes (%) (Auto) 6.3 % 10.3 % Eosinophils (%) (Auto) 0.0 % 0.0 % Basophils (%) (Auto) 0.1 % 0.1 % Neutrophils # (Auto) 10.76 K/uL 10.82 K/uL Lymphocytes # (Auto) 1.18 K/uL 1.77 K/uL Monocytes # (Auto) 0.81 K/uL 1.46 K/uL Eosinophils # (Auto) 0.00 K/uL 0.00 K/uL Basophils # (Auto) 0.01 K/uL 0.01 K/uL RDW Standard Deviation 43.7 fL 43.7 fL RDW Coefficient of Variation 13.6 % 13.6 % Immature Granulocyte % (Auto) 0.2 % 0.4 % Immature Granulocyte # (Auto) 0.03 K/uL 0.05 K/uL Sodium Level 135 mmol/L 134 mmol/L Potassium Level 4.1 mmol/L 3.8 mmol/L Chloride Level 105 mmol/L 105 mmol/L Carbon Dioxide Level 22 mmol/L 21 mmol/L Anion Gap 8.0 mmol/L 8.0 mmol/L Blood Urea Nitrogen 21 mg/dl 16 mg/dl Creatinine 1.02 mg/dl 0.84 mg/dl Est Creatinine Clear Calc Drug Dose 74.0 ml/min 89.8 ml/min Estimated GFR () 85.9 102.8 Estimated GFR (Non- 74.1 88.7 BUN/Creatinine Ratio 20.9 19.5 Random Glucose 164 mg/dl 146 mg/dl Calcium Level 7.9 mg/dl 7.8 mg/dl Phosphorus Level 2.1 mg/dl 2.6 mg/dl Magnesium Level 2.0 mg/dl 2.2 mg/dl Total Bilirubin 0.5 mg/dl Direct Bilirubin 0.1 mg/dl Aspartate Amino Transf (AST/SGOT) 8 U/L Alanine Aminotransferase (ALT/SGPT) 18 U/L Alkaline Phosphatase 115 U/L Total Creatine Kinase 174 U/L 228 U/L Creatine Kinase MB 1.7 ng/ml 2.2 ng/ml Creatine Kinase MB Ratio 1.0 1.0 Troponin I 0.021 ng/ml 0.028 ng/ml Total Protein 6.1 gm/dl Albumin 2.9 gm/dl Prothrombin Time 10.9 SECONDS Prothromb Time International Ratio 1.0
[2017-06-21] MEDS ORDERED: SODIUM CHLORIDE 0.65% NA SOLN 45 ML (OCEAN) PRN (16:30)
[2017-06-22] MEDS: D5W AND 1/2NSS 1,000 ML IV SCH ×2 (04:06→11:54)
[2017-06-22 07:40] VITALS: BP 169/75; PULSE 60; TEMP 36.7; O2SAT 91
[2017-06-22] MEDS: ENOXAPARIN 30 MG/0.3 ML SYR SQ SCH (08:53)
[2017-06-22] MEDS: LISINOPRIL 10 MG TAB PO SCH (08:54)
[2017-06-22] MEDS: METOPROLOL TARTRATE 25 MG TAB PO SCH (08:54)
[2017-06-22] MEDS: METOPROLOL TARTRATE 50 MG TAB PO SCH (08:54)
[2017-06-22] MEDS: RANITIDINE HCL 150 MG TAB PO SCH (08:55)
[2017-06-22] MEDS: ASPIRIN 81 MG ECTAB PO SCH (08:55)
[2017-06-22] MEDS: ATORVASTATIN 40 MG TAB PO SCH (08:55)
[2017-06-22] MEDS: ISOSORBIDE MONONITRATE 60 MG TABCR PO SCH (08:55)
[2017-06-22] MEDS: DOCUSATE SODIUM 100 MG CAP PO SCH (08:55)
[2017-06-22] MEDS: AMLODIPINE BESYLATE 5 MG TAB PO SCH (08:55)
[2017-06-22] MEDS: CLOPIDOGREL BISULFATE 75 MG TAB PO SCH (08:56)
[2017-06-22] MEDS: MAGNESIUM OXIDE 400 MG TAB PO SCH (09:59)
[2017-06-22] MEDS ORDERED: OXYC-57 PO (14:31)
--- NOTE | 2017-06-22 14:31 | Progress Note ---
Progress Note Date of Service: Jun 22, 2017. Subjective Complains of incisional pain. Better with meds Objective Vital Signs Vital Signs Past 12 Hours Date Time Temp Pulse Resp B/P (MAP) Pulse Ox O2 Delivery O2 Flow Rate FiO2 06/22/17 07:40 36.7 60 19 169/75 (106) 91 Room Air 06/22/17 07:35 Room Air Exam Awake alert VSS Afebrile No choking with swallowing. Does have sore throat with swallowing Incision dry and clean No change in neck swelling Tracheal midline No neuro deficits. Intake & Output 8-Hour Column 06/22/17 06/23/17 06/23/17 16:00 00:00 08:00 Intake Total 1387 ml Output Total 675 ml Balance 712 ml 24-Hour Column 06/23/17 08:00 Intake Total 1387 ml Output Total 675 ml Balance 712 ml Imp: Post left CEA Plan: Doing well D/c today
--- NOTE | 2017-06-22 14:32 | Discharge Instructions ---
Discharge Instructions Date of Service Jun 22, 2017. Admission Reason for Admission: Left Internal Carotid Artery Stenosis Discharge Discharge Diagnosis / Problem: Left carotid stenosis Discharge Goals Goal(s): Therapeutic intervention Activity Recommendations Activity Limitations: per Instructions/Follow-up section . Instructions / Follow-Up Instructions / Follow-Up Call [phone] to schedule a follow up appointment if one not already scheduled. SPECIAL CARE INSTRUCTIONS: Medications: * Continue to take Aspirin as directed. Incision Care: * You may shower, but do not rub incision. You may let the warm soapy water run over it. Be sure to dry the incision well after bathing. * Do not shave directly over the incision until it is healed. * DO NOT IMMERSE THE INCISION IN A TUB/POOL/etc. UNTIL HEALED. Restrictions: * Do not drive for at least one week or if you are still taking any narcotic pain medication. * Do not lift anything heavier than a gallon of milk for one week after going home. Possible Complications: * Numbness - It is normal to have some numbness around the incision. Numbness can extend beyond the incision to areas of the neck, ear and face. The numbness is due to bruising of nerves during the surgery and will gradually improve over a period of months. * Hoarseness/Difficulty Speaking and Swallowing - The bruising of nerves in the neck can also cause a hoarse voice, difficulty speaking or swallowing. This may improve over time, HOWEVER, if it continues for more than a few days please contact our office ([phone]). * Excessive Swelling - There will be some swelling immediately after surgery which usually resolves within one week. If you notice that the swelling is getting worse, notify your surgeon ([phone]). * Drainage/Bleeding - If there is any drainage or bleeding, it should be a very small amount (less than a teaspoon per day). If you have excessive bleeding or drainage from the incision, call your surgeon ([phone]) right away. ACTIVATION OF EMERGENCY MEDICAL SYSTEM: Call [phone], immediately, if you experience any of the following: Warning Signs and Symptoms of Stroke: * Sudden numbness or weakness of the face, arm or leg, especially on one side of the body * Sudden confusion, trouble speaking or understanding * Sudden trouble seeing in one or both eyes * Sudden trouble walking, dizziness, loss of balance or coordination * Sudden severe headache with no cause Do not delay calling 911 if you experience any warning signs or symptoms of a stroke. Delay in seeking medical attention may affect what treatments can be given to you. Risk Factors for Stroke: You can reduce your chances of stroke by working with your medical provider to adopt a healthy lifestyle. Some specific ways to lower your chance of stroke are: * If you are a smoker, now is the time to stop smoking cigarettes * If you are diabetic, improve the control of your blood sugars * Avoid excessive amounts of alcohol * Control high blood pressure * Lose weight if you are overweight * Be sure to lead an active lifestyle * Eat a healthy diet low in salt, cholesterol and fat You should know about other risk factors for stroke that you are unable to control. These include: * Age 55 years or older * Male gender * Certain racial groups: , or / * Family History of Stroke, Mini stroke or Heart Attack * Sickle Cell Disease You will be receiving a call from the Vascular Surgery Nurse after you are discharged. FOLLOW UP VISIT: It is important for you to keep your follow up appointments with your medical provider. Keep any scheduled doctor appointments. Current Hospital Diet Patient's current hospital diet: AHA Diet (Heart Healthy) Discharge Diet Recommended Diet: AHA Diet (Heart Healthy) Procedures Procedures Performed: Left Carotid Endarterectomy with Patch Angioplasty Pending Studies Studies pending at discharge: no Medical Emergencies . Who to Call and When: Medical Emergencies: If at any time you feel your situation is an emergency, please call 911 immediately. . Non-Emergent Contact Non-Emergency issues call your: Surgeon . "Provider Documentation" section prepared by Tremaine Diaz. .
[2017-06-22 14:53] VITALS: BP 169/75; PULSE 60; TEMP 36.7; O2SAT 91
--- NOTE | 2017-06-23 10:13 | DISCHARGE SUMMARY ---
ADMISSION DIAGNOSIS: Severe left internal carotid artery stenosis. DISCHARGE DIAGNOSES: 1. Status post left carotid endarterectomy with patch. 2. Severe left internal carotid artery stenosis. DISCHARGE CONDITION: Stable. CONSULTATIONS IN THE HOSPITAL: Included critical care during his ICU hospital stay. PROCEDURES IN THE HOSPITAL: Included his left carotid endarterectomy with patch performed on 06/20/2017 with an EBL of 150 mL and no significant complications. HISTORY OF PRESENT ILLNESS: Mr. Walter is a 71-year-old male with a longstanding history of severe coronary artery disease, having undergone multiple catheterizations and stent placements in the past. A carotid bruit was noted on a routine exam at fall and an ultrasound was performed. This demonstrated a significantly elevated velocity in the left internal carotid artery and he was sent to our office for evaluation. He underwent CTA evaluation which verified the degree of stenosis to be over 90% on the left and 60% on the right. He had no significant symptoms. No history of TIA. However, due to the severity of the stenosis and significantly increased risk for CVA, he was recommended to consider undergoing a left carotid endarterectomy to prevent CVA. After considering his options for some time, he was eventually agreeable to the procedure. The risks, benefits, alternatives were all discussed with the patient in the office by Dr. Diaz and the patient consented. HOSPITAL COURSE: Mr. Walter was admitted on 06/20/2016 after undergoing his left carotid endarterectomy. As I said, this was performed without significant blood loss or significant complications. His vital signs and labs remained essentially stable; however, he was complaining of severe pain in his left neck surgical site. There did not appear to be excessive swelling or ecchymosis. There was no drainage or erythema and his trachea remained midline throughout his stay. He had no difficulty speaking and just a sore throat with swallowing due to his endotracheal tube. He stayed in the hospital 1 more night due to the amount of pain he was experiencing and eventually his pain was under control with oral pain medication and he was felt to be stable enough for discharge on postop day 2. PHYSICAL EXAMINATION: VITAL SIGNS: On day of discharge, his vital signs were as follows: A temperature of 36.7, pulse of 60, respiratory rate of 19, blood pressure of 169/75, pulse oximetry of 91% on room air. CONSTITUTIONAL: The patient is a mildly chronically ill appearing elderly male in no acute distress. He ambulated without assistance and was active, alert and oriented x4 with normal recent and remote memory. HEAD: Normocephalic and atraumatic. EYES: EOMI. ENMT: Demonstrates no hearing loss, rhinorrhea or pharyngeal erythema. NECK: The right side of his neck was supple, nontender. His trachea was midline. His left neck surgical incision was well approximated with sutures and skin glue and demonstrated mild edema. This was soft. There was no large firm hematoma noted. There was no significant ecchymosis or erythema. There was no drainage. LUNGS: Exam demonstrated decreased sounds throughout with sparse expiratory wheeze and some coarse breath sounds. CARDIOVASCULAR: His heart demonstrated a regular rate and rhythm without significant murmurs. His peripheral pulses were full and equal in extremities unless otherwise noted, specifically they were normal in his carotid, brachial, radial and femoral pulses. EXTREMITIES: His lower extremity distal pulses were nonpalpable. He had brisk capillary refill. No sign of distal ischemia. NEUROLOGIC: The patient has grossly intact cranial nerves and grossly intact sensation. He had no focal neurological deficits after his procedure. DIET: Should be a low-cholesterol AHA diet. MEDICATIONS UPON DISCHARGE: Reconciled in the chart and are as per his discharge instructions. FOLLOWUP: Should with Dr. Diaz or his PA Ana Sommers within 2 weeks for reevaluation of his surgical site. He was advised to call the office with any other questions.
== END 2017-06-22 16:15 | DRG 39 ==
LOC: C.ACU 08:44 → C.MSICU 14:20 → ENRESERV 15:12 → C.MSN 06-21 14:28
PROVIDERS: ADMIT Surgery Vascular Surgery; ATTEND Surgery Vascular Surgery
PROC: 03CL0ZZ Extirpation of Matter from Left Internal Carotid Artery, Open Approach (ICD-10-PCS; principal; 2017-06-20 10:30)
PROC: 07B20ZX Excision of Left Neck Lymphatic, Open Approach, Diagnostic (ICD-10-PCS; principal; 2017-06-20 10:30)
PROC: 03UL0JZ Supplement Left Internal Carotid Artery with Synthetic Substitute, Open Approach (ICD-10-PCS; principal; 2017-06-20 10:30)
DX: I65.22 Occlusion and stenosis of left carotid artery (principal); R59.0 Localized enlarged lymph nodes; J44.9 Chronic obstructive pulmonary disease, unspecified; K21.9 Gastro-esophageal reflux disease without esophagitis; I25.10 Atherosclerotic heart disease of native coronary artery without angina pectoris; I11.9 Hypertensive heart disease without heart failure; E78.5 Hyperlipidemia, unspecified; I73.9 Peripheral vascular disease, unspecified; E11.9 Type 2 diabetes mellitus without complications; F17.210 Nicotine dependence, cigarettes, uncomplicated; Z79.899 Other long term (current) drug therapy; Z79.82 Long term (current) use of aspirin; Z95.5 Presence of coronary angioplasty implant and graft; Z95.1 Presence of aortocoronary bypass graft; Z88.0 Allergy status to penicillin; Z91.013 Allergy to seafood; Z91.040 Latex allergy status; Z91.041 Radiographic dye allergy status; Z88.8 Allergy status to other drugs, medicaments and biological substances; Z82.49 Family history of ischemic heart disease and other diseases of the circulatory system